=== PATIENT | female | born 1960 | race Caucasian/White ===

== ENCOUNTER → 2016-12-04 | Outpatient (CLI) | payer OTHER ==
[~2016-12-04] MED LIST: ALEVE220 MG PO; NEXIUM 24HR20 MG PO; PREMARIN0.3 MG PO; REGLAN10 MG PO; REQUIP3 MG PO
== END | disposition disaster alternative care site (69) ==
LOC: GRAD 08:44
DX: R10.31 Right lower quadrant pain (principal); Z90.710 Acquired absence of both cervix and uterus

== ENCOUNTER → 2016-12-18 | Outpatient (CLI) | payer OTHER | END | disposition disaster alternative care site (69) | LOC: GRAD 13:27 | DX: R10.31 Right lower quadrant pain (principal); K57.30 Diverticulosis of large intestine without perforation or abscess without bleeding; K76.0 Fatty (change of) liver, not elsewhere classified; Z90.710 Acquired absence of both cervix and uterus; Z90.49 Acquired absence of other specified parts of digestive tract | CPT/HCPCS: Q9967 ==

== ENCOUNTER → 2016-12-28 | Outpatient (CLI) | payer OTHER | END | disposition disaster alternative care site (69) | LOC: LHSC 14:43 | DX: M67.471 Ganglion, right ankle and foot (principal) ==